=== PATIENT | female | born 2000 | race Caucasian/White ===

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

== ENCOUNTER 2023-01-31 07:37 | Day surgery (SDC) | payer BC, OTHER ==
[~2023-01-31 07:37] MED LIST: Bupivacaine 0.25% 30 ML SDV ONE; Bupivacaine 25%/EPINEPHrine/PF 30 ML ONE; Dexmedetomidine 200 MCG/2 ML SDV ONE; Ketamine 500 mg/10 ML MDV ONE; Lactated Ringers 1,000 ML IV SCH; Midazolam 1 MG/ML 2 ML SDV ONE; Ondansetron 4 MG/2 ML SDV ONE; Propofol 200 MG/20 ML SDV ONE; Ropivacaine 0.5% 5 MG/ML 30 ML SDV ONE; Water For Injection, Sterile 20 ML ONE; fentaNYL 100 MCG/2 ML SDV ONE; propofoL 50 ML ONE
[2023-01-31] MEDS ORDERED: ceFAZolin 2 GM in Sodium Chloride 0.9% 50 ML IV ONE (08:00)
[2023-01-31] MEDS ORDERED: Famotidine 20 MG/2 ML SDV ONE (08:03)
[2023-01-31] MEDS ORDERED: droPERidol 5 MG/2 ML SDV IVPUSH PRN (08:04)
[2023-01-31] MEDS ORDERED: fentaNYL 50 MCG/ML SDV IVPUSH PRN (08:04)
[2023-01-31] MEDS ORDERED: Metoclopramide 10 MG/2 ML SDV IVPUSH PRN (08:04)
[2023-01-31] MEDS ORDERED: Albuterol 0.083% 2.5 MG/3 ML Neb Soln NEB PRN (08:04)
[2023-01-31] MEDS ORDERED: Morphine 2 MG/ML SYRINGE IVPUSH PRN (08:04)
[2023-01-31] MEDS ORDERED: Ondansetron 4 MG/2 ML SDV IVPUSH PRN (08:04)
[2023-01-31] MEDS ORDERED: Naloxone 0.4 MG/ML SDV IVPUSH PRN (08:04)
[2023-01-31] MEDS ORDERED: HYDROmorphone 1 MG/ML Syringe IVPUSH PRN (08:04)
[2023-01-31] MEDS ORDERED: fentaNYL 250 MCG/5 ML SDV ONE (08:24)
[2023-01-31] MEDS ORDERED: ceFAZolin 2 GM Vial ONE (08:25)
[2023-01-31] MEDS ORDERED: Water For Injection, Sterile 20 ML ONE (08:27)
[2023-01-31] MEDS ORDERED: Dexmedetomidine 200 MCG/2 ML SDV ONE (08:27)
[2023-01-31] MEDS ORDERED: Propofol 200 MG/20 ML SDV ONE (09:14)
[2023-01-31] MEDS ORDERED: Morphine Sulfate 10mg/ml SDV ONE (09:42)
[2023-01-31] MEDS ORDERED: HYDROmorphone 2 MG/ML Syringe ONE (09:52)
[2023-01-31] MEDS ORDERED: Acetaminophen/HYDROcodone 325-5 MG Tab PO ONE (12:14)
[2023-01-31 12:41] VITALS: BP 150/88; PULSE 114
[2023-02-01] MEDS ORDERED: Propofol 200 MG/20 ML SDV ONE (12:08)
== END 2023-01-31 13:00 | disposition home or self-care (01) ==
LOC: MW.SDS 07:37
PROVIDERS: ATTEND Orthopaedic Surgery
DX: S83.512A Sprain of anterior cruciate ligament of left knee, initial encounter (principal); X58.XXXA Exposure to other specified factors, initial encounter; Y93.67 Activity, basketball
CPT/HCPCS: 29888; 64447; 81025; A9270; C1713; J0690; J1170; J2250; J2704; J2795; J3010; J3490; J7120; J2270; J2405